=== PATIENT | female | born 1950 | race American Indian/Alaskan Native ===

== ENCOUNTER 2017-04-22 08:20 | Day surgery (SDC) | payer MEDICARE | END 2017-04-22 09:00 | disposition home or self-care (01) | LOC: CATHLABREC 08:20 → EDSTATUS 08:30 → CATHLABREC 09:00 | PROVIDERS: ATTEND Radiology Diagnostic Radiology | DX: N28.1 Cyst of kidney, acquired (principal); Z53.8 Procedure and treatment not carried out for other reasons ==

== ENCOUNTER 2017-04-29 08:06 | Day surgery (SDC) | payer MEDICARE ==
[2017-04-29 09:49] LABS: Basophils % (Auto) 0.4 % (0.0-1.8); Eosinophils # (Auto) 0.1 K/mm3 (0.0-0.4); Eosinophils % (Auto) 1.6 % (0.0-4.3); Hematocrit 38.4 % (30.3-42.9); Lymphocytes # (Auto) 1.2 K/mm3 (1.2-5.4); Lymphocytes % (Auto) 15.4 % (13.4-35.0); Mean Corpuscular HGB Conc 34 % (30-34); Mean Corpuscular Hemoglobin 31 pg (28-32); Mean Corpuscular Volume 91 fl (79-97); Monocytes # (Auto) 0.7 K/mm3 (0.0-0.8); Monocytes % (Auto) 8.9 % (0.0-7.3); Platelet Count 271 K/mm3 (140-440); Red Blood Count 4.23 M/mm3 (3.65-5.03); Red Cell Distribution Width 17.1 % (13.2-15.2)
[2017-04-29 10:00] LABS: INR 1.08 (0.87-1.13)
[2017-04-29 10:01] LABS: Partial Thromboplastin Time 30.9 Sec. (24.2-36.6)
[2017-04-29] MEDS ORDERED: VERSED IV ONE ×2 (10:28→10:33)
[2017-04-29] MEDS ORDERED: SUBLIMAZE IV ONE (10:28)
[2017-04-29] MEDS ORDERED: SUBLIMAZE ONE (10:34)
[2017-04-29] MEDS ORDERED: GELFOAM 12 X 7 TP ONE (11:25)
[2017-04-29 15:15] VITALS: BP 126/78
--- NOTE | 2017-05-01 12:31 | Operative Report ---
Operative Report Operative Report: Procedure: CT-guided right sided renal biopsy Indication: 67-year-old female awaiting evaluation for renal transplant. Biopsy of a slightly higher density right sided cyst is requested to exclude malignancy. Date: 03/2017 Physician: Kelsey Antoine MD Technique: The patient was placed on the prone position on the CT table. A marking grid was placed, and a laydown machine operator image was acquired order to determine an appropriate entry site. A site was marked, and the patient was prepped and draped in the usual sterile fashion. A timeout was performed. Under sequential CT guidance, a 17-gauge trocar needle was advanced to the periphery of a right lower pole cyst. Through this needle, an 18-gauge Biopince biopsy device was used to acquire multiple core samples. Gelfoam was injected through the entry tract for hemostasis. A final image was acquired. Discussion: There is successful biopsy of a right sided renal cyst. On-site pathology was present to determine adequacy of the sample. Postprocedural imaging demonstrates no perinephric hematoma.
== END 2017-04-29 15:30 | disposition home or self-care (01) ==
LOC: CT 08:06 → CATHLABREC 08:06
PROVIDERS: ATTEND Radiology Diagnostic Radiology
DX: N26.9 Renal sclerosis, unspecified (principal); N18.6 End stage renal disease; Z99.2 Dependence on renal dialysis
CPT/HCPCS: 36415; 50200; 77012; 85025; 85610; 85730; 88305; 88333; 88334; A4649; J2250; J3010

== ENCOUNTER 2017-08-11 16:13 | Observation (INO) | payer MEDICARE ==
[2017-08-11 17:02] LABS: Basophils % (Auto) 0.4 % (0.0-1.8); Eosinophils # (Auto) 0.1 K/mm3 (0.0-0.4); Eosinophils % (Auto) 0.9 % (0.0-4.3); Hematocrit 35.8 % (30.3-42.9); Hemoglobin 11.4 gm/dl (10.1-14.3); Lymphocytes # (Auto) 0.9 K/mm3 (1.2-5.4); Lymphocytes % (Auto) 7.6 % (13.4-35.0); Mean Corpuscular HGB Conc 32 % (30-34); Mean Corpuscular Hemoglobin 29 pg (28-32); Mean Corpuscular Volume 91 fl (79-97); Monocytes % (Auto) 8.1 % (0.0-7.3); Platelet Count 234 K/mm3 (140-440); Red Blood Count 3.92 M/mm3 (3.65-5.03); Red Cell Distribution Width 14.8 % (13.2-15.2)
[2017-08-11 17:12] LABS: INR 0.9 (0.87-1.13)
[2017-08-11 17:13] LABS: Partial Thromboplastin Time 29.4 Sec. (24.2-36.6)
[2017-08-11] MEDS ORDERED: ZOFRAN IV ONE (17:31)
[2017-08-11] MEDS ORDERED: MORPHINE IV ONE (17:31)
[2017-08-11 17:35] LABS: Calcium 8.6 mg/dL (8.4-10.2)
[2017-08-11 17:37] LABS: Creatine Kinase MB 1.5 ng/mL (0.0-4.0)
[2017-08-11 18:10] LABS: Chol/HDL Ratio 1.73 %
--- NOTE | 2017-08-11 19:03 | Cat Scan Report ---
FINAL REPORT EXAM: CT HEAD/BRAIN WO CON HISTORY: syncope with head injury TECHNIQUE: CT head without contrast PRIORS: None. FINDINGS: No acute intra-axial or extra-axial hemorrhage is identified. There is no evidence of midline shift or mass effect. The ventricles and sulci are within normal limits. Jones-white matter differentiation is intact. No acute parenchymal abnormalities seen. Bony calvarium is grossly intact. Visualized portions of the mastoids and paranasal sinuses are unremarkable. IMPRESSION: Negative CT head
--- NOTE | 2017-08-11 19:14 | Cat Scan Report ---
FINAL REPORT EXAM: CT CERVICAL SPINE WO CON HISTORY: syncope with head injury TECHNIQUE: CT cervical spine with reconstructions PRIORS: None. FINDINGS: Vertebral bodies demonstrate normal height and alignment. There is degenerative disc space narrowing at C3-C4 and C4-C5 with small marginal vertebral body osteophytes. Multilevel facet joint arthropathy noted. The facet joints demonstrate normal alignment. The spinous processes are intact. Craniocervical junction is unremarkable. C1 and C2 are intact. IMPRESSION: Degenerative disc disease C3-C4 and C4-C5 Facet joint arthropathy No acute traumatic abnormality identified
[2017-08-11] MEDS ORDERED: ANTIVERT PO ONE (19:58)
[2017-08-11] MEDS ORDERED: NORCO 5/325 PO ONE (19:58)
[2017-08-11] MEDS ORDERED: LET TOPICAL TP ONE (20:53)
--- NOTE | 2017-08-11 21:28 | Emergency Department Report ---
ED Syncope HPI - General Chief Complaint: Syncope Stated Complaint: WEAKNESS/SYNCOPAL EPISODE Time Seen by Provider: 08/11/17 16:57 - History of Present Illness Initial Comments: Patient is a 67-year-old female past medical history end-stage renal disease on dialysis who is has syncopal episode at dialysis center. Patient states that she had her full dialysis and waited in the dialysis chair for a proximal hour watching TV. Patient is wheelchair dependent she wheeled herself to the bathroom and at some point was transitioning to the toilet patient states she passed out. Patient does not have any chest pain shortness of breath palpitations before the syncopal episode. Patient states that she remembers being in the bathroom and the next day she remembers people were around her trying to wake her up. Patient states that she does have a headache that is 8 out of 10 in severity. It is mostly left sided patient has a great amount of pain at the ear and there is an wound to the inner ear. Patient again denies any chest pain shortness of breath fevers chills nausea vomiting at this time. - Related Data Allergies/Adverse Reactions: Allergies No Known Allergies Allergy (Verified 04/29/17 10:30) Home Medications: Ambulatory Orders Allopurinol 100 mg PO DAILY 04/29/17 Aspirin EC [Aspirin Enteric Coated TAB] 81 mg PO DAILY 04/29/17 Cinacalcet HCl [Sensipar] 60 mg PO DAILY 04/29/17 Midodrine [Proamatine] 10 mg PO BID 04/29/17 Omeprazole 40 mg PO DAILY 04/29/17 Ondansetron [Zofran ODT TAB] 4 mg PO DAILY PRN 04/29/17 Yocasta-Blaire Rx Tablet 1 tab PO DAILY 04/29/17 Scopolamine 1 mg TRANSDERMA Q72HR 04/29/17 Sucralfate [Carafate] 1 gm PO QID 04/29/17 Warfarin Sodium [Coumadin] 3 mg PO DAILY 04/29/17 ED Review of Systems ROS: Stated complaint: WEAKNESS/SYNCOPAL EPISODE Other details as noted in HPI Comment: All other systems reviewed and negative ED Past Medical Hx - Past Medical History Hx GERD: Yes Hx Renal Disease: Yes (HD MWF) Additional medical history: hypotension - Surgical History Hx Breast Surgery: Yes (Breast Reduction) Additional Surgical History: gastric sleeve. hysterectomy. ovarian cyst removal. L nephrectomy - Social History Smoking Status: Never Smoker Substance Use Type: None - Medications Home Medications: Home Medications Medication Instructions Recorded Confirmed Last Taken Type Allopurinol 100 mg PO DAILY 04/29/17 04/29/17 04/28/17 History 100mg Aspirin EC [Aspirin Enteric Coated 81 mg PO DAILY 04/29/17 04/29/17 04/24/17 History TAB] 81mg Cinacalcet HCl [Sensipar] 60 mg PO DAILY 04/29/17 04/29/17 04/28/17 History 60mg Midodrine [Proamatine] 10 mg PO BID 04/29/17 04/29/17 04/28/17 History 10mg Omeprazole 40 mg PO DAILY 04/29/17 04/29/17 04/28/17 History 40mg Ondansetron [Zofran ODT TAB] 4 mg PO DAILY PRN 04/29/17 04/29/17 04/28/17 History 4mg Yocasta-Blaire Rx Tablet 1 tab PO DAILY 04/29/17 04/29/17 04/28/17 History 1 Scopolamine 1 mg TRANSDERMA Q72HR 04/29/17 04/29/17 04/26/17 History 1mg Sucralfate [Carafate] 1 gm PO QID 04/29/17 04/29/17 04/28/17 History 1 gm Warfarin Sodium [Coumadin] 3 mg PO DAILY 04/29/17 04/29/17 04/24/17 History 3mg ED Physical Exam - General Limitations: Physical Limitation General appearance: alert, in no apparent distress - Head Head exam: Present: atraumatic, normocephalic - Eye Eye exam: Present: normal appearance - ENT ENT exam: Present: mucous membranes moist. Absent: normal external ear exam ( patient has a 2 cm V shaped skin flap and the inner ear centrally located. There is a small amount of cartilage that is exposed.) - Neck Neck exam: Present: normal inspection - Respiratory Respiratory exam: Present: normal lung sounds bilaterally. Absent: respiratory distress - Cardiovascular Cardiovascular Exam: Present: regular rate, normal rhythm. Absent: systolic murmur, diastolic murmur, rubs, gallop - GI/Abdominal GI/Abdominal exam: Present: soft, normal bowel sounds - Extremities Exam Extremities exam: Present: normal inspection - Back Exam Back exam: Present: normal inspection - Neurological Exam Neurological exam: Present: alert, oriented X3 - Psychiatric Psychiatric exam: Present: normal affect, normal mood - Skin Skin exam: Present: warm, dry, intact, normal color. Absent: rash ED Course Vital Signs 08/11/17 08/11/17 08/11/17 16:25 16:54 17:00 Temperature 98.4 F Pulse Rate 82 75 Respiratory 18 13 Rate Blood Pressure 132/83 145/79 O2 Sat by Pulse 97 99 99 Oximetry 08/11/17 08/11/17 08/11/17 17:16 17:30 17:46 Temperature Pulse Rate 79 84 73 Respiratory 11 L 10 L 14 Rate Blood Pressure 145/79 145/79 131/89 O2 Sat by Pulse 100 94 Oximetry 08/11/17 08/11/17 18:04 18:16 Temperature Pulse Rate 73 Respiratory 17 Rate Blood Pressure 131/89 135/80 O2 Sat by Pulse 100 100 Oximetry ED Medical Decision Making - Lab Data Result diagrams: 08/11/17 16:51 08/11/17 16:51 - Radiology Data CT of the head and CT of the C-spine are within normal limits showed no acute process. - Medical Decision Making Patient is a 67-year-old female had a syncopal episode with injury to the left ear. Regarding the patient's vital signs are within normal limits the patient seems well. She is continued to have a headache however because of a head injury. Patient's ear shows a skin flap this flap is to use superficial to place stitches. There is concern of in this area of placing sutures into the cartilage. Therefore I have opted to use Xeroform gauze and a pressure dressing to treat this injury and not do stitches. Critical care attestation.: If time is entered above; I have spent that time in minutes in the direct care of this critically ill patient, excluding procedure time. ED Disposition Clinical Impression: Skin tear, Early traumatic complication of injury Headache Qualifiers: Headache type: unspecified Headache chronicity pattern: acute headache Intractability: not intractable Qualified Code(s): R51 - Headache Syncope Qualifiers: Syncope type: unspecified Qualified Code(s): R55 - Syncope and collapse Closed head injury Qualifiers: Encounter type: initial encounter Qualified Code(s): S09.90XA - Unspecified injury of head, initial encounter Disposition: DC-09 OP ADMIT IP TO THIS HOSP Is pt being admited?: Yes Condition: Stable Instructions: Syncope (ED) Referrals: DR KALYAN [Other] - 3-5 Days
[2017-08-11] MEDS ORDERED: SODIUM CHLORIDE FLUSH SYRINGE 10 ML IV PRN (22:35)
[2017-08-11] MEDS ORDERED: TYLENOL PO PRN (22:35)
--- NOTE | 2017-08-11 22:40 | History and Physical Report ---
History of Present Illness Date of examination: 08/11/17 History of present illness: 67-year-old man with a history of hypertension, end-stage renal disease on dialysis Friday, Friday, Friday, GERD comes to emergency room for evaluation of a syncopal episode. Patient state she has completed dialysis, went to the bathroom, sat on the toilet trying to have a bowel movement, she was not successful, she remember waking up on the floor. She thinks that she passed out for about 10 minutes, there was no warning signs Review of systems Constitutional: no weight loss, chills Ears, eyes, nose, mouth and throat: no nasal congestion, no nasal discharge, no sinus pressure, no vision change, no red eye. Neck: No neck pain or rigidity. Cardiovascular: no chest pain, palpitations Respiratory: No cough, shortness of breath Gastrointestinal: no abdominal pain, hematochezia Genitourinary : no dysuria, frequency , no hematuria Musculoskeletal: no joint swelling or muscle ache Integumentary: no rash, no pruritis Neurological: no parathesias, no numbness, no focal weakness Endocrine: no cold or heat intolerance, no polyuria or polydipsia Hematologic/Lymphatic: no easy bruising, no easy bleeding, no gland swelling Allergic/Immunologic: no urticaria, no angioedema. PAST MEDICAL HISTORY: hypertension, end-stage renal disease, GERD PAST SURGICAL HISTORY: Breast reduction, gastric sleeve, removal of ovarian cysts, left nephrectomy, hysterectomy SOCIAL HISTORY: Denies all all, tobacco, drugs FAMILY HISTORY: Hypertension Medications and Allergies Allergies Allergy/AdvReac Type Severity Reaction Status Date / Time No Known Allergies Allergy Verified 04/29/17 10:30 Home Medications Medication Instructions Recorded Confirmed Last Taken Type Allopurinol 100 mg PO DAILY 04/29/17 08/12/17 2 Days Ago History ~08/10/17 Cinacalcet HCl [Sensipar] 60 mg PO DAILY 04/29/17 08/12/17 2 Days Ago History ~08/10/17 Midodrine [Proamatine] 10 mg PO TID 04/29/17 08/12/17 2 Days Ago History ~08/10/17 Ondansetron [Zofran ODT TAB] 4 mg PO Q8H PRN 04/29/17 08/12/17 2 Days Ago History ~08/10/17 Sucralfate [Carafate] 1 gm PO QID 04/29/17 08/12/17 1 Day Ago History ~08/11/17 Apixaban [Eliquis] 2.5 mg PO BID 08/12/17 08/12/17 2 Days Ago History ~08/10/17 AtorvaSTATin [Lipitor] 20 mg PO QDAY 08/12/17 08/12/17 2 Days Ago History ~08/10/17 Cholecalciferol (Vitamin D3) 10,000 unit PO 1XW 08/12/17 08/12/17 1 Week Ago History [Vitamin D3 10,000 unit] ~08/05/17 Pregabalin [Lyrica] 25 mg PO QDAY 08/12/17 08/12/17 2 Days Ago History ~08/10/17 Topiramate [Topamax] 25 mg PO BID 08/12/17 08/12/17 2 Days Ago History ~08/10/17 Vit B Complx C/Folic Acid/Zinc 800 mg PO QDAY 08/12/17 08/12/17 2 Days Ago History [Dialyvite 800-Zinc 15 mg Tab] ~08/10/17 Lidocaine Topical 2% 5Ml 5 ml MM DAILY #7 tube 08/13/17 Unknown Rx [Xylocaine Topical 2% 5Ml] Pantoprazole [Protonix TAB] 40 mg PO BID #60 tablet 08/13/17 Unknown Rx oxyCODONE /ACETAMINOPHEN [Percocet 2 tab PO Q6H PRN #14 tablet 08/13/17 Unknown Rx 5/325 mg] Exam - Physical Exam Narrative exam: Gen. appearance: Patient lying in bed, no apparent distress HEENT: Normocephalic, atraumatic, pupils equally round and reactive to light, extraocular movement intact, and no sclericterus,. No JVD or thyromegaly or nodule,neck supple, no carotid bruit ,mucous membranes moist, no exudate or erythema Heart: S1, S2, regular rate and rhythm Lungs: Clear to auscultation bilaterally, breathing comfortable Abdomen: Positive bowel sounds, nontender, nondistended, no organomegaly Extremity: No edema, cyanosis, clubbing Skin: No rash, nodules, warm, dry Neuro: Oriented 3, cranial nerves II-12 intact, speech is fluent, motor and sensory intact - Constitutional Vitals: Temp Pulse Resp BP Pulse Ox 98.4 F 73 17 135/80 100 08/11/17 16:25 08/11/17 18:16 08/11/17 18:16 08/11/17 18:16 08/11/17 18:16 Results - Labs CBC & Chem 7: 08/12/17 05:52 08/13/17 11:24 Labs: Abnormal lab results 08/11/17 08/11/17 Range/Units 16:51 16:51 WBC 12.2 H (4.5-11.0) K/mm3 Lymph % (Auto) 7.6 L (13.4-35.0) % Beaver % (Auto) 8.1 H (0.0-7.3) % Lymph # 0.9 L (1.2-5.4) K/mm3 Beaver # 1.0 H (0.0-0.8) K/mm3 Seg Neutrophils % 83.0 H (40.0-70.0) % Seg Neutrophils # 10.2 H (1.8-7.7) K/mm3 Potassium 3.0 L (3.6-5.0) mmol/L Chloride 93.1 L (98-107) mmol/L Carbon Dioxide 34 H (22-30) mmol/L Creatinine 4.3 H (0.7-1.2) mg/dL Troponin T 0.063 H (0.00-0.029) ng/mL Triglycerides 188 H (2-149) mg/dL LDL Cholesterol Direct 44 L (50-130) mg/dL HDL Cholesterol 83 H (40-59) mg/dL Assessment and Plan Assessment Syncopal episode, most likely vasovagal End-stage renal disease on dialysis Hypokalemia Hypertension GERD Plan Admit to medicine Check cardiac enzymes, ech carotid Doppler Consult cardiology, replete potassium Continue appropriate patient medications dvt prophylaxis
[2017-08-11] MEDS ORDERED: K-DUR PO ONE (23:39)
[2017-08-12 00:29] LABS: Creatine Kinase MB 1.5 ng/mL (0.0-4.0)
[2017-08-12] MEDS ORDERED: PERCOCET 5/325 ONE (01:28)
[2017-08-12] MEDS ORDERED: K-DUR PO ONE ×3 (01:29→15:27)
[2017-08-12] MEDS: PERCOCET 5/325 PO PRN ×4 (01:37→22:30)
[2017-08-12 07:31] LABS: Basophils # (Auto) 0.1 K/mm3 (0.0-0.1); Basophils % (Auto) 0.7 % (0.0-1.8); Eosinophils # (Auto) 0.2 K/mm3 (0.0-0.4); Eosinophils % (Auto) 2.2 % (0.0-4.3); Hematocrit 34.4 % (30.3-42.9); Hemoglobin 11.5 gm/dl (10.1-14.3); Lymphocytes # (Auto) 1.7 K/mm3 (1.2-5.4); Mean Corpuscular HGB Conc 34 % (30-34); Mean Corpuscular Hemoglobin 30 pg (28-32); Mean Corpuscular Volume 90 fl (79-97); Monocytes # (Auto) 0.7 K/mm3 (0.0-0.8); Monocytes % (Auto) 9.3 % (0.0-7.3); Platelet Count 218 K/mm3 (140-440); Red Blood Count 3.81 M/mm3 (3.65-5.03); Red Cell Distribution Width 15.4 % (13.2-15.2)
[2017-08-12 07:34] LABS: Creatine Kinase MB 1.2 ng/mL (0.0-4.0)
[2017-08-12 07:36] LABS: Calcium 9.3 mg/dL (8.4-10.2)
[2017-08-12] MEDS: LOVENOX SUB-Q SCH (11:49)
[2017-08-12] MEDS: SODIUM CHLORIDE FLUSH SYRINGE 10 ML IV SCH ×2 (11:53→22:32)
[2017-08-12] MEDS: ZOFRAN IV PRN ×2 (13:12→18:21)
[2017-08-12] MEDS ORDERED: XYLOCAINE TOPICAL 2% 5ML TP ONE (13:29)
--- NOTE | 2017-08-12 14:12 | Consultation ---
History of Present Illness Consult date: 08/12/17 Consult reason: syncope History of present illness: This is a 67yr old woman who gives a history of chronic hypotension on midodrine as an outpatient, end stage renal disease and pulmonary embolism for which she is on eliquis for oral anticoagulation. She presented to this hospital and admitted with syncope. Patient reports after her dialysis session was completed, she went to use the restroom. Patient recalls sitting on the toilet just before passing out sustaining a laceration to her left ear. When she came to herself she was on the floor. She denies dizziness, chest pain, shortness of breath and palpitations just prior to passing out. Head CT scan is normal. A 12 lead ECG is benign, a normal sinus rhythm. Patient denies a prior cardiac history. She denies history of seizures. She reports a negative thallium stress test done at [facility] within the last year. Medications and Allergies Allergies Allergy/AdvReac Type Severity Reaction Status Date / Time No Known Allergies Allergy Verified 04/29/17 10:30 Home Medications Medication Instructions Recorded Confirmed Last Taken Type Allopurinol 100 mg PO DAILY 04/29/17 08/12/17 2 Days Ago History ~08/10/17 Cinacalcet HCl [Sensipar] 60 mg PO DAILY 04/29/17 08/12/17 2 Days Ago History ~08/10/17 Midodrine [Proamatine] 10 mg PO TID 04/29/17 08/12/17 2 Days Ago History ~08/10/17 Omeprazole 40 mg PO DAILY 04/29/17 08/12/17 2 Days Ago History ~08/10/17 Ondansetron [Zofran ODT TAB] 4 mg PO Q8H PRN 04/29/17 08/12/17 2 Days Ago History ~08/10/17 Sucralfate [Carafate] 1 gm PO QID 04/29/17 08/12/17 1 Day Ago History ~08/11/17 Apixaban [Eliquis] 2.5 mg PO BID 08/12/17 08/12/17 2 Days Ago History ~08/10/17 AtorvaSTATin [Lipitor] 20 mg PO QDAY 08/12/17 08/12/17 2 Days Ago History ~08/10/17 Cholecalciferol (Vitamin D3) 10,000 unit PO 1XW 08/12/17 08/12/17 1 Week Ago History [Vitamin D3 10,000 unit] ~08/05/17 Pantoprazole [Protonix] 40 mg PO QDAY 08/12/17 08/12/17 2 Days Ago History ~08/10/17 Pregabalin [Lyrica] 25 mg PO QDAY 08/12/17 08/12/17 2 Days Ago History ~08/10/17 Topiramate [Topamax] 25 mg PO BID 08/12/17 08/12/17 2 Days Ago History ~08/10/17 Vit B Complx C/Folic Acid/Zinc 800 mg PO QDAY 08/12/17 08/12/17 2 Days Ago History [Dialyvite 800-Zinc 15 mg Tab] ~08/10/17 Active Meds: Active Medications Acetaminophen (Tylenol) 650 mg PO Q4H PRN PRN Reason: Pain MILD(1-3)/Fever >100.5/PIPER Last Admin: 08/12/17 06:10 Dose: 650 mg Enoxaparin Sodium (Lovenox) 30 mg SUB-Q QDAY [facility] Last Admin: 08/12/17 11:49 Dose: 30 mg Ondansetron HCl (Zofran) 4 mg IV Q4H PRN PRN Reason: Nausea And Vomiting Last Admin: 08/12/17 13:12 Dose: 4 mg Oxycodone/Acetaminophen (Percocet 5/325) 2 tab PO Q6H PRN PRN Reason: Pain, Moderate (4-6) Sodium Chloride (Sodium Chloride Flush Syringe 10 Ml) 10 ml IV BID [facility] Last Admin: 08/12/17 11:53 Dose: 10 ml Sodium Chloride (Sodium Chloride Flush Syringe 10 Ml) 10 ml IV PRN PRN PRN Reason: LINE FLUSH Physical Examination Vital Signs Temp Pulse Resp BP Pulse Ox 98.4 F 82 18 132/83 97 08/11/17 16:25 08/11/17 16:25 08/11/17 16:25 08/11/17 16:25 08/11/17 16:25 General appearance: no acute distress HEENT: Positive: PERRL Cardiac: Positive: Reg Rate and Rhythm Lungs: Positive: Decreased Breath Sounds Neuro: Positive: Grossly Intact Results 08/12/17 05:52 08/12/17 05:52 Cardiac Enzymes 08/11/17 08/11/17 08/12/17 Range/Units 16:51 23:39 05:52 CK-MB (CK-2) 1.5 1.5 1.2 (0.0-4.0) ng/mL Coagulation 08/11/17 Range/Units 16:51 PT 12.6 (12.2-14.9) Sec. INR 0.90 (0.87-1.13) APTT 29.4 (24.2-36.6) Sec. Lipids 08/11/17 Range/Units 16:51 Triglycerides 188 H (2-149) mg/dL Cholesterol 144 (50-199) mg/dL HDL Cholesterol 83 H (40-59) mg/dL Cholesterol/HDL Ratio 1.73 % CBC 08/11/17 08/12/17 Range/Units 16:51 05:52 WBC 12.2 H 7.8 (4.5-11.0) K/mm3 RBC 3.92 3.81 (3.65-5.03) M/mm3 Hgb 11.4 11.5 (10.1-14.3) gm/dl Hct 35.8 34.4 (30.3-42.9) % Plt Count 234 218 (140-440) K/mm3 Lymph # 0.9 L 1.7 (1.2-5.4) K/mm3 Caroline # 1.0 H 0.7 (0.0-0.8) K/mm3 Eos # 0.1 0.2 (0.0-0.4) K/mm3 Baso # 0.0 0.1 (0.0-0.1) K/mm3 Comprehensive Metabolic Panel 08/11/17 08/12/17 Range/Units 16:51 05:52 Sodium 139 143 (137-145) mmol/L Potassium 3.0 L 3.3 L (3.6-5.0) mmol/L Chloride 93.1 L 95.5 L (98-107) mmol/L Carbon Dioxide 34 H 32 H (22-30) mmol/L BUN 8 14 (7-17) mg/dL Creatinine 4.3 H 5.4 H (0.7-1.2) mg/dL Glucose 99 107 H (65-100) mg/dL Calcium 8.6 9.3 (8.4-10.2) mg/dL Assessment and Plan Syncope ESRD on dialysis Chronic hypotension on midodrine as an outpatient Hx of PE -on eliquis for oral anticoagulation
--- NOTE | 2017-08-12 15:08 | Progress Note ---
<CARISA FOSTER - Last Filed: 08/12/17 15:12> Assessment and Plan Assessment and plan: Syncopal episode, most likely vasovagal Echo results pending, bilateral carotid duplex showed less than 50% stenosis bilaterally, cardiology consulted stress test scheduled for tomorrow End-stage renal disease on dialysis Hemodialysis per renal team, Friday schedule Hypokalemia Replenished today Hypotension Monitor BP, restart midodrine PRN GERD Continue PPI DVT prophylaxis Lovenox History Interval history: Patient seen and examined. No new events overnight. Labs and nursing notes reviewed. Hospitalist Physical - Physical exam Narrative exam: General appearance: Present: no acute distress, well-nourished - EENT Eyes: Present: PERRL, EOM intact ENT: hearing intact, clear oral mucosa - Neck Present: supple, normal ROM - Respiratory Respiratory effort: normal Respiratory: bilateral: CTA - Cardiovascular Rhythm: regular Heart Sounds: Present: S1 & S2 - Extremities Extremities: no ischemia, No edema - Abdominal General gastrointestinal: soft, non-tender, non-distended - Integumentary Integumentary: Present: clear, warm, dry - Psychiatric Psychiatric: appropriate mood/affect, intact judgment & insight, cooperative - Neurologic Neurologic: CNII-XII intact, moves all extremities - Constitutional Vitals: Temp Pulse Resp BP Pulse Ox 98.4 F 80 20 122/75 98 08/11/17 16:25 08/12/17 10:00 08/12/17 10:00 08/12/17 04:28 08/12/17 10:00 Results - Labs CBC & Chem 7: 08/12/17 05:52 08/12/17 05:52 Labs: Laboratory Last Values WBC 7.8 K/mm3 (4.5-11.0) 08/12/17 05:52 RBC 3.81 M/mm3 (3.65-5.03) 08/12/17 05:52 Hgb 11.5 gm/dl (10.1-14.3) 08/12/17 05:52 Hct 34.4 % (30.3-42.9) 08/12/17 05:52 MCV 90 fl (79-97) 08/12/17 05:52 MCH 30 pg (28-32) 08/12/17 05:52 MCHC 34 % (30-34) 08/12/17 05:52 RDW 15.4 % (13.2-15.2) H 08/12/17 05:52 Plt Count 218 K/mm3 (140-440) 08/12/17 05:52 Lymph % (Auto) 22.0 % (13.4-35.0) 08/12/17 05:52 Nicollet % (Auto) 9.3 % (0.0-7.3) H 08/12/17 05:52 Eos % (Auto) 2.2 % (0.0-4.3) 08/12/17 05:52 Baso % (Auto) 0.7 % (0.0-1.8) 08/12/17 05:52 Lymph # 1.7 K/mm3 (1.2-5.4) 08/12/17 05:52 Nicollet # 0.7 K/mm3 (0.0-0.8) 08/12/17 05:52 Eos # 0.2 K/mm3 (0.0-0.4) 08/12/17 05:52 Baso # 0.1 K/mm3 (0.0-0.1) 08/12/17 05:52 Seg Neutrophils % 65.8 % (40.0-70.0) 08/12/17 05:52 Seg Neutrophils # 5.1 K/mm3 (1.8-7.7) 08/12/17 05:52 PT 12.6 Sec. (12.2-14.9) 08/11/17 16:51 INR 0.90 (0.87-1.13) 08/11/17 16:51 APTT 29.4 Sec. (24.2-36.6) 08/11/17 16:51 Sodium 143 mmol/L (137-145) 08/12/17 05:52 Potassium 3.3 mmol/L (3.6-5.0) L 08/12/17 05:52 Chloride 95.5 mmol/L (98-107) L 08/12/17 05:52 Carbon Dioxide 32 mmol/L (22-30) H 08/12/17 05:52 Anion Gap 19 mmol/L 08/12/17 05:52 BUN 14 mg/dL (7-17) 08/12/17 05:52 Creatinine 5.4 mg/dL (0.7-1.2) H 08/12/17 05:52 Estimated GFR 10 ml/min 08/12/17 05:52 BUN/Creatinine Ratio 3 % 08/12/17 05:52 Glucose 107 mg/dL (65-100) H 08/12/17 05:52 Calcium 9.3 mg/dL (8.4-10.2) 08/12/17 05:52 Total Creatine Kinase 57 units/L (30-135) 08/12/17 05:52 CK-MB (CK-2) 1.2 ng/mL (0.0-4.0) 08/12/17 05:52 CK-MB (CK-2) Rel Index 2.1 (0-4) 08/12/17 05:52 Troponin T 0.066 ng/mL (0.00-0.029) H 08/12/17 05:52 Triglycerides 188 mg/dL (2-149) H 08/11/17 16:51 Cholesterol 144 mg/dL (50-199) 08/11/17 16:51 LDL Cholesterol Direct 44 mg/dL (50-130) L 08/11/17 16:51 HDL Cholesterol 83 mg/dL (40-59) H 08/11/17 16:51 Cholesterol/HDL Ratio 1.73 % 08/11/17 16:51 <STEFANO RAINEY - Last Filed: 08/13/17 07:21> Assessment and Plan Assessment and plan: I saw and evaluated the patient. I agree with the findings and the plan of care as documented in the PA's~note, with the following corrections and additions. Hospitalist Physical - Constitutional Vitals: Temp Pulse Resp BP Pulse Ox 97.6 F 74 18 128/84 95 08/13/17 04:43 08/13/17 04:43 08/13/17 04:43 08/13/17 04:43 08/13/17 04:43 Results - Labs CBC & Chem 7: 08/12/17 05:52 08/12/17 16:59 Labs: Laboratory Last Values WBC 7.8 K/mm3 (4.5-11.0) 08/12/17 05:52 RBC 3.81 M/mm3 (3.65-5.03) 08/12/17 05:52 Hgb 11.5 gm/dl (10.1-14.3) 08/12/17 05:52 Hct 34.4 % (30.3-42.9) 08/12/17 05:52 MCV 90 fl (79-97) 08/12/17 05:52 MCH 30 pg (28-32) 08/12/17 05:52 MCHC 34 % (30-34) 08/12/17 05:52 RDW 15.4 % (13.2-15.2) H 08/12/17 05:52 Plt Count 218 K/mm3 (140-440) 08/12/17 05:52 Lymph % (Auto) 22.0 % (13.4-35.0) 08/12/17 05:52 Nicollet % (Auto) 9.3 % (0.0-7.3) H 08/12/17 05:52 Eos % (Auto) 2.2 % (0.0-4.3) 08/12/17 05:52 Baso % (Auto) 0.7 % (0.0-1.8) 08/12/17 05:52 Lymph # 1.7 K/mm3 (1.2-5.4) 08/12/17 05:52 Nicollet # 0.7 K/mm3 (0.0-0.8) 08/12/17 05:52 Eos # 0.2 K/mm3 (0.0-0.4) 08/12/17 05:52 Baso # 0.1 K/mm3 (0.0-0.1) 08/12/17 05:52 Seg Neutrophils % 65.8 % (40.0-70.0) 08/12/17 05:52 Seg Neutrophils # 5.1 K/mm3 (1.8-7.7) 08/12/17 05:52 PT 12.6 Sec. (12.2-14.9) 08/11/17 16:51 INR 0.90 (0.87-1.13) 08/11/17 16:51 APTT 29.4 Sec. (24.2-36.6) 08/11/17 16:51 Sodium 143 mmol/L (137-145) 08/12/17 05:52 Potassium 3.8 mmol/L (3.6-5.0) 08/12/17 16:59 Chloride 95.5 mmol/L (98-107) L 08/12/17 05:52 Carbon Dioxide 32 mmol/L (22-30) H 08/12/17 05:52 Anion Gap 19 mmol/L 08/12/17 05:52 BUN 14 mg/dL (7-17) 08/12/17 05:52 Creatinine 5.4 mg/dL (0.7-1.2) H 08/12/17 05:52 Estimated GFR 10 ml/min 08/12/17 05:52 BUN/Creatinine Ratio 3 % 08/12/17 05:52 Glucose 107 mg/dL (65-100) H 08/12/17 05:52 Calcium 9.3 mg/dL (8.4-10.2) 08/12/17 05:52 Magnesium 2.20 mg/dL (1.7-2.3) 08/12/17 15:36 Total Creatine Kinase 57 units/L (30-135) 08/12/17 05:52 CK-MB (CK-2) 1.2 ng/mL (0.0-4.0) 08/12/17 05:52 CK-MB (CK-2) Rel Index 2.1 (0-4) 08/12/17 05:52 Troponin T 0.066 ng/mL (0.00-0.029) H 08/12/17 05:52 Triglycerides 188 mg/dL (2-149) H 08/11/17 16:51 Cholesterol 144 mg/dL (50-199) 08/11/17 16:51 LDL Cholesterol Direct 44 mg/dL (50-130) L 08/11/17 16:51 HDL Cholesterol 83 mg/dL (40-59) H 08/11/17 16:51 Cholesterol/HDL Ratio 1.73 % 08/11/17 16:51
--- NOTE | 2017-08-12 15:26 | Consultation ---
History of Present Illness - History of Present Illness Thank you for the consultation patient was evaluated today. Source of information; from patient herself History of presenting illness; Patient is a 67-year-old -[place] female who has been admitted here with a syncopal spell. Patient is undergoing workup for that she has had hemodialysis treatment yesterday and during her dialysis on an average anywhere from 1-3 pounds of fluids are removed. Patient also has been on transplant list and recently found out that if she continues to take midodrine old to get kidney transplant which she normally does take for chronic hypotension. Patient stopped this medication nearly a week ago, and was taking for hypotension. She has had the syncopal spell at the dialysis center, and after dialysis run to the bathroom and then passed out. She has no complaints of any chest pain pressure or shortness of breath nausea vomiting fevers chills, she is otherwise feeling well Past medical history significant for End-stage renal disease currently on maintenance hemodialysis Anemia and end-stage renal disease Chronic hypotension Secondary hyperparathyroidism Gastroesophageal reflux disorder Gout Left nephrectomy Hysterectomy Gastric sleeve surgery Ovarian cyst removal Chronic anticoagulation Current allergies: None Home medication: Allopurinol, aspirin, Sensipar, midodrine, omeprazole, Zofran, kidney vitamin, scopolamine, Carafate, warfarin Social history: No history of any recent alcohol drug tobacco abuse Family history: Noncontributory for renal related disorder Review of system is positive for recent syncopal spell patient felt profoundly weak and dizzy prior to the syncopal spell did not had any chest pain dialysis was tolerated well Complete review of other systems were negative Labs and x-rays: Were reviewed from the current chart Physical examination General: No acute distress HEENT: Oral mucosa moist no pharyngeal erythema no pallor or icterus no uremic order Neck: Supple no evidence of any thyromegaly trachea midline no JVD Chest: Clear to auscultation no crackles are also wheezes anteriorly Heart: Regular rate and rhythm S1-S2 heard no S3-S4 Abdomen: Soft nontender no renal bruit no CVA tenderness no suprapubic fullness no organomegaly Extremity: Minimal edema dry skin no peripheral cyanosis pulses palpable Neurological: Alert awake follows command grossly nonfocal examination Back: Nontender thoracolumbar spine Musculoskeletal: No joint effusion noted Skin: No petechial rash/noted Assessment and plan end-stage renal disease: Patient is currently on maintenance hemodialysis Friday and Friday being followed at [facility] Anemia and end-stage renal disease: To monitor and follow, hemoglobin is currently 11.5 Hypokalemia requires correction follow-up closely check magnesium level, potassium is 3.3 needs to be around four Chronic hypotension on midodrine therapy patient stopped taking the medicine approximately a week ago which likely is the cause of hypotension is in no subsequent syncopal spell patient however needs to have further workup for syncopal spell There is no acute emergent indication for renal replacement therapy We'll check cortisol level in the morning, may consider trying her on Florinef as well as prednisone 10 mg once a day to see if she clinically responds as far as hypotension is concerned as some of the dialysis patient may have adrenal insufficiency that goes undiagnosed for quite some time, Nature and severity of renal-related issues were discussed with patient, all questions were answered and simple Occitan Patient does have good understanding about renal-related issues. Counseled and educated at length about all the renal related issues and upon discharge to make a follow-up appointment in the office with her otr company driver We'll continue to follow and make recommendations from renal standpoint. If you have any questions please feel free to contact me at [phone] Thank you for the consultation. Medications and Allergies Allergies Allergy/AdvReac Type Severity Reaction Status Date / Time No Known Allergies Allergy Verified 04/29/17 10:30 Home Medications Medication Instructions Recorded Confirmed Last Taken Type Allopurinol 100 mg PO DAILY 04/29/17 08/12/17 2 Days Ago History ~08/10/17 Cinacalcet HCl [Sensipar] 60 mg PO DAILY 04/29/17 08/12/17 2 Days Ago History ~08/10/17 Midodrine [Proamatine] 10 mg PO TID 04/29/17 08/12/17 2 Days Ago History ~08/10/17 Omeprazole 40 mg PO DAILY 04/29/17 08/12/17 2 Days Ago History ~08/10/17 Ondansetron [Zofran ODT TAB] 4 mg PO Q8H PRN 04/29/17 08/12/17 2 Days Ago History ~08/10/17 Sucralfate [Carafate] 1 gm PO QID 04/29/17 08/12/17 1 Day Ago History ~08/11/17 Apixaban [Eliquis] 2.5 mg PO BID 08/12/17 08/12/17 2 Days Ago History ~08/10/17 AtorvaSTATin [Lipitor] 20 mg PO QDAY 08/12/17 08/12/17 2 Days Ago History ~08/10/17 Cholecalciferol (Vitamin D3) 10,000 unit PO 1XW 08/12/17 08/12/17 1 Week Ago History [Vitamin D3 10,000 unit] ~08/05/17 Pantoprazole [Protonix] 40 mg PO QDAY 08/12/17 08/12/17 2 Days Ago History ~08/10/17 Pregabalin [Lyrica] 25 mg PO QDAY 08/12/17 08/12/17 2 Days Ago History ~08/10/17 Topiramate [Topamax] 25 mg PO BID 08/12/17 08/12/17 2 Days Ago History ~08/10/17 Vit B Complx C/Folic Acid/Zinc 800 mg PO QDAY 08/12/17 08/12/17 2 Days Ago History [Dialyvite 800-Zinc 15 mg Tab] ~08/10/17 Active Meds: Active Medications Acetaminophen (Tylenol) 650 mg PO Q4H PRN PRN Reason: Pain MILD(1-3)/Fever >100.5/PIPER Last Admin: 08/12/17 06:10 Dose: 650 mg Atorvastatin Calcium (Lipitor) 20 mg PO QDAY [facility] Enoxaparin Sodium (Lovenox) 30 mg SUB-Q QDAY [facility] Last Admin: 08/12/17 11:49 Dose: 30 mg Miscellaneous Medication (Cinacalcet Hcl [Sensipar]) 60 mg PO DAILY [facility] Ondansetron HCl (Zofran) 4 mg IV Q4H PRN PRN Reason: Nausea And Vomiting Last Admin: 08/12/17 13:12 Dose: 4 mg Oxycodone/Acetaminophen (Percocet 5/325) 2 tab PO Q6H PRN PRN Reason: Pain, Moderate (4-6) Last Admin: 08/12/17 15:16 Dose: 2 tab Pregabalin (Lyrica) 25 mg PO QDAY [facility] Sodium Chloride (Sodium Chloride Flush Syringe 10 Ml) 10 ml IV BID DOMINIC Last Admin: 08/12/17 11:53 Dose: 10 ml Sodium Chloride (Sodium Chloride Flush Syringe 10 Ml) 10 ml IV PRN PRN PRN Reason: LINE FLUSH Exam - Vital Signs Vital signs: Vital Signs Temp Pulse Resp BP Pulse Ox 98.4 F 82 18 132/83 97 08/11/17 16:25 08/11/17 16:25 08/11/17 16:25 08/11/17 16:25 08/11/17 16:25 Results - Lab Results 08/12/17 05:52 08/12/17 05:52 Most recent lab results Calcium 9.3 mg/dL (8.4-10.2) 08/12/17 05:52
[2017-08-13] MEDS: ZOFRAN IV PRN ×2 (01:06→12:13)
[2017-08-13] MEDS ORDERED: LEXISCAN IV ONE ×2 (08:37→08:44)
--- NOTE | 2017-08-13 09:26 | Progress Note ---
Subjective Interval history: Patient was seen today for follow-up, regarding multiple renal related issues Events of 24 hours were noted Patient denies any complaints of chest pain pressure or shortness of breath Interdisciplinary Notes were also reviewed from past 24 hours Vitals labs intake output medications: Reviewed Past medical history: Reviewed Allergies: Reviewed Social history: Reviewed Family history: Reviewed Physical examination Gen.: No acute distress HEENT: Mild pallor nor icterus no uremic order Neck: Supple without any mass or JVD Chest: Clear to auscultation anteriorly Heart: Regular rate and rhythm S1 and S2 heard Abdomen: Soft nontender no suprapubic fullness no masses no renal bruit Extremity: Edema , no peripheral cyanosis Skin: No petechial rashes dry skin Assessment and plan End-stage renal disease: Patient is currently on maintenance hemodialysis Friday and Friday Blood pressure perez she is stable, hemodialysis today if stress test is normal Patient can receive hemodialysis treatment today with ultrafiltration goal of about 500 mL/ we'll change dialysate sodium to 140 temperature to 35.5 Chronic hypotension patient was on midodrine therapy which she stopped, pending cortisol level, need to rule out any possibility of adrenal insufficiency here, cortisol level pending Will start the patient on Florinef/to cortisone trial today due to high suspicion of adrenal insufficiency pending cortisol level Pros and cons of therapy were discussed with patient. She was advised to see her winder hand next week, to see if this needs to be continued. She agrees to do that, she is hesitant to continue with midodrine Hypokalemia will consider a 3K bath today and follow-up on the potassium level We'll continue to follow and make recommendation from renal standpoint Had a detailed discussion with patient about renal care plan, Renal prognosis currently is guarded Significant lab finding were discussed with patient unexplained and simple [place]an Patient does have good understanding about renal related issues We'll continue to follow and make recommendation from renal standpoint Objective - Vital Signs Vital signs: Vital Signs - 12hr 08/12/17 08/13/17 08/13/17 22:00 00:17 04:43 Temperature 97.8 F 97.6 F Pulse Rate 77 81 74 Respiratory 18 18 Rate Blood Pressure 125/82 128/84 O2 Sat by Pulse 98 95 Oximetry - Lab 08/12/17 05:52 08/13/17 11:24 Most recent lab results Calcium 9.3 mg/dL (8.4-10.2) 08/12/17 05:52 Magnesium 2.20 mg/dL (1.7-2.3) 08/12/17 15:36
[2017-08-13] MEDS ORDERED: FLORINEF PO SCH (10:00)
[2017-08-13] MEDS ORDERED: LYRICA PO SCH (10:00)
[2017-08-13] MEDS ORDERED: NON-FORMULARY (Cinacalcet Hcl [Sensipar] 60 MG) PO SCH (10:00)
[2017-08-13] MEDS ORDERED: ZOFRAN ODT PO PRN (10:57)
[2017-08-13] MEDS ORDERED: CORTEF PO SCH (11:00)
[2017-08-13] MEDS: PERCOCET 5/325 PO PRN (11:01)
[2017-08-13] MEDS: SODIUM CHLORIDE FLUSH SYRINGE 10 ML IV SCH (11:03)
[2017-08-13 11:43] LABS: Calcium 9.7 mg/dL (8.4-10.2)
--- NOTE | 2017-08-13 11:46 | Progress Note ---
Assessment and Plan Syncope - reason for admission Normal MPI, Normal LVEF No arrhythmias on tele Patient recently stopped her midodrine ESRD on HD Non-specific troponin Borderline QT prolongation in the setting of hypokalemia History of PE on eliquis Recommendations: No further cardiac work-up is needed Subjective Date of service: 08/13/17 Principal diagnosis: Syncope Interval history: Lexiscan completed - no complications Objective Vital Signs Temp Pulse Resp BP Pulse Ox 08/13/17 11:01 20 08/13/17 10:00 66 08/13/17 04:43 97.6 F 74 18 128/84 95 08/13/17 00:17 97.8 F 81 18 125/82 98 08/12/17 22:00 77 08/12/17 20:10 98.1 F 79 18 105/69 100 08/12/17 16:58 98.4 F 70 18 144/86 98 08/12/17 16:16 20 08/12/17 15:16 20 08/12/17 12:05 98.7 F 16 149/90 - Physical Examination HEENT: Positive: PERRL Neck: Positive: neck supple Cardiac: Positive: Reg Rate and Rhythm Lungs: Positive: Normal Exam Neuro: Positive: Grossly Intact - Labs and Meds Comprehensive Metabolic Panel 08/12/17 Range/Units 16:59 Potassium 3.8 (3.6-5.0) mmol/L
[2017-08-13] MEDS: LOVENOX SUB-Q SCH (12:13)
--- NOTE | 2017-08-13 12:32 | Discharge Summary ---
<CARISA FOSTER - Last Filed: 08/13/17 12:38> Providers - Providers Date of Admission: 08/11/17 22:35 Date of discharge: 08/13/17 Attending physician: STEFANO RAINEY MD 08/11/17 22:35 Consult to Physician [CONS] Routine Comment: Consulting Provider: PAYTON LOPEZ Physician Instructions: Reason For Exam: syncope 08/12/17 11:31 Consult to Physician [CONS] Routine Comment: Consulting Provider: EMMY GREENE Physician Instructions: Reason For Exam: ESRD on HD 08/12/17 13:16 Consult to Wound/ET Nurse [CONS] Routine Reason For Exam: wound eval Hospitalization Condition: Stable Hospital course: Patient is a 67-year-old woman who presented to the emergency department for evaluation of a syncopal episode. Carotid Doppler revealed less than 50% stenosis bilaterally. CT of the head was negative. Cervical spine CT showed No acute traumatic abnormality. Cardiology was consulted and patient underwent a stress test which was normal. Echocardiogram showed normal left ventricular systolic function and ejection fraction of 60-65%. Etiology of patient's syncope is likely defecation associated syncope which is likely vasovagal. Patient's potassium was repleted and replenished during her hospital stay. She was dialyzed 1 and was clinically stable for discharge. Patient will follow up with the primary care provider within 1 week of discharge and resume her hemodialysis as scheduled. Discharge diagnoses Syncopal episode End-stage renal disease on dialysis Hypokalemia Hypertension GERD DVT prophylaxis Disposition: TO HOME OR SELFCARE Time spent for discharge: 32 minutes Core Measure Documentation - Palliative Care Palliative Care/ Comfort Measures: Not Applicable - Core Measures Any of the following diagnoses?: none Exam - Physical Exam Narrative exam: General appearance: Present: no acute distress, well-nourished - EENT Eyes: Present: PERRL, EOM intact ENT: hearing intact, clear oral mucosa - Neck Present: supple, normal ROM - Respiratory Respiratory effort: normal Respiratory: bilateral: CTA - Cardiovascular Rhythm: regular Heart Sounds: Present: S1 & S2 - Extremities Extremities: no ischemia, No edema - Abdominal General gastrointestinal: soft, non-tender, non-distended - Integumentary Integumentary: Present: clear, warm, dry - Psychiatric Psychiatric: appropriate mood/affect, intact judgment & insight, cooperative - Neurologic Neurologic: CNII-XII intact, moves all extremities - Constitutional Vitals: Temp Pulse Resp BP Pulse Ox 97.6 F 66 20 156/88 95 08/13/17 04:43 08/13/17 10:00 08/13/17 11:01 08/13/17 09:31 08/13/17 04:43 Plan Diet: renal Follow up with: DR KALYAN [Other] - 3-5 Days Prescriptions: Lidocaine Topical 2% 5Ml [Xylocaine Topical 2% 5Ml] 5 ml MM DAILY #7 tube oxyCODONE /ACETAMINOPHEN [Percocet 5/325 mg] 2 tab PO Q6H PRN #14 tablet PRN Reason: Pain, Moderate (4-6) Pantoprazole [Protonix TAB] 40 mg PO BID #60 tablet Pending Studies Discharge is pending completion of Dialysis <STEFANO RAINEY - Last Filed: 08/14/17 08:52> Providers - Providers Date of Admission: 08/11/17 22:35 Attending physician: STEFANO RAINEY MD 08/12/17 11:31 Consult to Physician [CONS] Routine Comment: Consulting Provider: EMMY GREENE Physician Instructions: Reason For Exam: ESRD on HD 08/12/17 13:16 Consult to Wound/ET Nurse [CONS] Routine Reason For Exam: wound eval Hospitalization Hospital course: I saw and evaluated the patient. I agree with the findings and the plan of care as documented in the PA's~note, with the following corrections and additions. Exam - Constitutional Vitals: Temp Pulse Resp BP Pulse Ox 97.8 F 92 H 18 141/89 97 08/13/17 18:30 08/13/17 18:30 08/13/17 18:30 08/13/17 18:30 08/13/17 15:00
[2017-08-13] MEDS ORDERED: SENSIPAR PO SCH (13:00)
[2017-08-13] MEDS ORDERED: PROTONIX PO SCH (13:30)
--- NOTE | 2017-08-13 13:49 | XRay Report ---
Left shoulder single view: History: Shoulder pain status post fall. Findings: Mild separation of a.c. joint which may be normal finding. Glenohumeral joint is normal. No evidence of fracture or dislocation. Impression. No evidence of acute fracture. Findings as detailed above.
[2017-08-13] MEDS ORDERED: CARAFATE PO SCH (14:00)
[2017-08-13] MEDS ORDERED: XYLOCAINE TOPICAL 2% 5ML TP ONE (14:00)
[2017-08-13] MEDS ORDERED: PROAMATINE PO SCH (14:00)
[2017-08-13] MEDS ORDERED: TRIPLE ANTIBIOTIC TP ONE (15:29)
[2017-08-13] MEDS ORDERED: NACL 0.9 (PRIMING MACHINE ONLY DIALYSIS) MC ONE (16:26)
[2017-08-13 18:42] VITALS: BP 141/89
[2017-08-13] MEDS ORDERED: ELIQUIS PO SCH (22:00)
[2017-08-13] MEDS ORDERED: TOPAMAX PO SCH (22:00)
--- NOTE | 2017-08-14 01:59 | Treadmill Report ---
ORDERING PHYSICIAN: Abel Meléndez MD INDICATION FOR THE PROCEDURE: Syncope. FINDINGS: There is no scintigraphic evidence of myocardial ischemia. The left ventricle is normal in size and systolic function. The left ventricular ejection fraction is measured at 68% with normal wall motion and wall thickening. CONCLUSION: This is a normal perfusion scan. JOB# [id number] ARACELI/NTS
[2017-08-14] MEDS ORDERED: PROTONIX PO SCH (10:00)
[2017-08-14] MEDS ORDERED: ZINC PO SCH (10:00)
[2017-08-14] MEDS ORDERED: Renal Caps PO SCH (10:00)
[2017-08-14] MEDS ORDERED: ZYLOPRIM PO SCH (10:00)
[2017-08-14] MEDS ORDERED: VIT B COMPLX C PO SCH (10:00)
[2017-08-14] MEDS ORDERED: FOLIC ACID PO SCH (10:00)
--- NOTE | 2017-08-18 17:09 | Vascular Lab Report ---
CAROTID DUPLEX STUDY: RIGHT PSVEDV CCA PROX:5819 CCA DIST:5221 ICA PROX:4720 ICA MID:6127 ICA DIST:8335 ECA: 62 VERT: 41 14 LEFT PSVEDV CCA PROX:7828 CCA DIST:7024 ICA PROX:5017 ICA MID:6829 ICA DIST:6729 ECA: 58 VERT: 54 17 REASON FOR EXAM: Syncope. COMMENTS ON THE RIGHT: Doppler frequency analysis is consistent with 16 to 49 percent diameter reduction of the internal carotid artery. A small amount of plaque is seen. The common carotid artery is patent. The external carotid artery is patent. The vertebral artery has antegrade flow. COMMENTS ON THE LEFT: Doppler frequency analysis is consistent with 16 to 49 percent diameter reduction of the internal carotid artery. A small amount of plaque is seen. The common carotid artery is patent. The external carotid artery is patent. The vertebral artery has antegrade flow. IMPRESSION: Less than 50% diameter reduction in the internal carotid arteries bilaterally.
== END 2017-08-13 19:41 | disposition home or self-care (01) ==
LOC: ED 16:13 → 4A 22:35
PROVIDERS: ADMIT Internal Medicine; ATTEND Internal Medicine
DX: I12.0 Hypertensive chronic kidney disease with stage 5 chronic kidney disease or end stage renal disease (principal); N18.6 End stage renal disease; R55 Syncope and collapse; E11.22 Type 2 diabetes mellitus with diabetic chronic kidney disease; E87.6 Hypokalemia; K21.9 Gastro-esophageal reflux disease without esophagitis
CPT/HCPCS: 36415; 70450; 72125; 73020; 78452; 80048; 80061; 82533; 82550; 82553; 83735; 84132; 84484; 85025; 85610; 85730; 93005; 93010; 93017; 93306; 93880; 96372; 96374; 96375; 96376; 99285; A9270; A9502; G0378; J1650; J2270; J2405; J2785; J7030; G0257